=== PATIENT | female | born 1975 | race Caucasian/White ===

== ENCOUNTER 2017-07-05 14:17 | Emergency (ER) | payer OTHER ==
[~2017-07-05] VITALS: Ht 162.6 cm; Wt 59.0 kg
[~2017-07-05 14:17] MED LIST: LORTAB 5/500 TA1 TA1 PO
== END 2017-07-05 16:03 | disposition home or self-care (01) ==
LOC: CED 14:17 → CFTX 14:17
DX: B85.0 Pediculosis due to Pediculus humanus capitis (principal); F17.200 Nicotine dependence, unspecified, uncomplicated; Z79.899 Other long term (current) drug therapy
CPT/HCPCS: 99282